=== PATIENT | male | born 1950 | race Caucasian/White ===

== ENCOUNTER 2022-10-05 14:10 | Outpatient (CLI) | payer MEDICARE, SELFPAY ==
[2022-10-05 14:35] LABS: Basophils Absolute Auto 0.1 K/mm3 (0.0-0.1); Basophils Percent Auto 0.8 % (0.2-1.2); Eosinophils Absolute Auto 0.2 K/mm3 (0-0.3); Eosinophils Percent Auto 2.7 % (0-4.4); Hematocrit 41.8 % (42.0-52.0); Immature Granulocyte Absolute 0.02 K/mm3 (0.00-0.031); Immature Granulocyte Percent A 0.3 % (0-0.5); Lymphocytes Absolute Auto 2.38 K/mm3 (0.9-3.2); Lymphocytes Percent Auto 30.7 % (18.3-44.2); Mean Corpuscular HGB Conc 33.5 g/dl (32-36); Mean Corpuscular Hemoglobin 28.9 pg (26-34); Mean Corpuscular Volume 86.4 fl (80-100); Mean Platelet Volume 9.4 fl (7.4-10.4); Monocytes Absolute Auto 0.9 K/mm3 (0.1-0.6); Neutrophils Absolute Auto 4.2 K/mm3 (1.3-6.7); Neutrophils Percent Auto 54.5 % (45.5-73.1); Platelet Count Result 208 k/mm3 (150-375); Red Blood Count 4.84 M/mm3 (4.6-6.20); Red Cell Distribution Width 11.9 % (11.5-14.5); White Blood Count 7.8 K/mm3 (4.5-10.0)
[2022-10-05 16:19] LABS: Alanine Aminotransferase 25 U/L (6-50); Alkaline Phosphatase 83 U/L (38-126); Anion Gap 6 mmol/L (8-16); Aspartate Amino Transferase 32 U/L (17-59); Bilirubin,Total 0.6 mg/dL (0.2-1.3); Blood Urea Nitrogen 24 mg/dL (9-20); Carbon Dioxide 33 mmol/L (22-30); Chloride 97 mmol/L (98-107); Estimated Glomerular Filt Rate > 60; Glucose 106 mg/dL (65-110); Potassium 4.3 mmol/L (3.4-5.0); Sodium 136 mmol/L (137-145)
[2022-10-05 18:43] LABS: Immunoglobulin A 98 mg/dL (70-400); Immunoglobulin G 966 mg/dL (700-1600); Immunoglobulin M 110 mg/dL (40-230)
[2022-10-08 06:59] LABS: Albumin 4.6 g/dL (3.8-4.8); Alpha 1 Globulin 0.4 g/dL (0.2-0.3); Beta 1 Globulin 0.4 g/dL (0.4-0.6); Gamma Globulin 0.9 g/dL (0.8-1.7); Protein, Total 7.6 g/dL (6.1-8.1)
[2022-10-09 05:43] LABS: Kappa\\Lambda Light Chains 1.59 (0.26-1.65); Lambda Light Chain 17.8 mg/L (5.7-26.3)
== END 2022-10-05 14:11 | disposition home or self-care (01) ==
LOC: ANHLAB 14:14
PROVIDERS: PCP Internal Medicine; Visit Provider Internal Medicine Hematology & Oncology
DX: D72.9 Disorder of white blood cells, unspecified (principal)
CPT/HCPCS: 36415; 80053; 82784; 83883; 84155; 84165; 85025

== ENCOUNTER 2023-01-15 11:18 | Emergency (ER) | payer MEDICARE, SELFPAY ==
--- NOTE | ~2023-01-15 | XR_ITS ---
XR chest 2V DATE: 01/15/2023 11:43 INDICATION: Cough, shortness of breath. Covid-positive 2 days ago. TECHNIQUE: 2 views COMPARISON: 12/31/2006 PA and lateral chest FINDINGS: Normal heart size. No hilar or mediastinal enlargement. No pulmonary infiltrate or consolid ation, pleural effusion or pulmonary vascular congestion or pneumothorax. 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 Degenerative spurring of the thoracic spine. IMPRESSION: No active cardiopulmonary disease Reviewed, dictated and finalized at location B.
--- NOTE | 2023-01-15 11:24 | ED.URI ---
HPI - URI/Sore Throat General Chief Complaint: Upper Respiratory Infection Stated Complaint: flu like symptoms Time Seen by Provider: 01/15/23 11:24 Source: patient Mode of arrival: ambulatory Limitations: no limitations History of Present Illness HPI Narrative: Mr. Ureña is a 72-year-old male patient presenting to the clinic today with complaints of COVID symptoms. He reports that his is tested positive for COVID. States his symptoms began either Wednesday night or Wednesday morning. He denies any known fever but has had chills, body aches, nonproductive cough, sore throat, headache, and mild shortness of breath. Denies chest pain. MD elicited complaint: cough, sore throat, nasal congestion and other (Headache, body aches, chills) Related Data Home Medications Medication Instructions Recorded Confirmed aspirin 81 mg capsule 81 mg PO DAILY 01/15/23 01/15/23 atenolol 25 mg tablet 50 mg PO DAILY 01/15/23 01/15/23 atorvastatin 40 mg tablet 40 mg PO DAILY 01/15/23 01/15/23 diclofenac sodium 75 mg 75 mg PO DAILY 01/15/23 01/15/23 tablet,delayed release ezetimibe 10 mg tablet 10 mg PO DAILY 01/15/23 01/15/23 gabapentin 600 mg tablet 600 mg PO TID 01/15/23 01/15/23 hydrochlorothiazide 25 mg tablet 25 mg PO DAILY 01/15/23 01/15/23 metformin 500 mg tablet 500 mg PO DAILY 01/15/23 01/15/23 methylphenidate HCl 10 mg tablet 20 mg PO DAILY 01/15/23 01/15/23 olmesartan 20 mg tablet 40 mg PO DAILY 01/15/23 01/15/23 omeprazole 20 mg capsule,delayed 20 mg PO DAILY 01/15/23 01/15/23 release Allergies Allergy/AdvReac Type Severity Reaction Status Date / Time meperidine Allergy Mild Nausea and Verified 01/15/23 11:38 Vomiting hydrocodone Allergy Unknown Verified 01/15/23 11:38 Review of Systems Review of Systems: Pertinent positives per HPI. Patient denies any fever, chills, rash, visual changes, dizziness, chest pain, palpitations, nausea, vomiting, diarrhea, constipation, abdominal pain, or any urinary issues. PMFSH Comments At the time of my signature, I reviewed and agree with the nursing past medical, surgical, social, and family history. There is no relevant family history pertinent to the patient complaint. Exam Narrative: General: Well-developed, well nourished, in no apparent distress Head: Normocephalic, atraumatic Eyes: Pupils equally round and reactive to light bilaterally, EOM intact, sclera and conjunctive clear, no discharge, lids normal Ears: Right tMs intact and clear, unable to visualize left TM due to foreign body in the ear canal (hearing aid silicon tip), right ear canal clear, no drainage, grossly hearing normal. Left ear is nonpainful Nose: Nares patent, clear nasal discharge, no inflammation, no sinus tenderness. Mouth: Oral pharynx without lesions or masses, good dentition, MMM. Neck: Supple, trachea midline, no enlargement of anterior or posterior cervical nodes, no thyroid masses or goiter palpable. Cardio: Regular rate and rhythm, s1 and s2 normal, no murmur appreciated. Resp: Left mid posterior lung crackles otherwise clear, no rhonchi, rales, wheezing or rubs Course Course Emergency Course: Portions of this record may have been created with voice recognition software. Level of Care: Express Care Visit Vital Signs Vital signs: Vital signs reviewed MDM - URI/Sore Throat MDM Narrative Medical decision making narrative: At the time of visit patient is resting comfortably on exam table. COVID testing was positive in the clinic today. Patient has crackles over the left mid lung adame posteriorly. Chest x-ray was negative for any sign of pneumonia. Will send in prescription for Molnupiravir. Supportive measures were discussed with the patient he voiced understanding discharge instructions. Red flag symptoms were reviewed with the patient he voiced understanding Differential Diagnosis Differential diagnosis: Likely upper respiratory infection, sinusitis, viral infection, bronchit
[2023-01-15 11:35] VITALS: BP 112/65; PULSE 93; RESP 18; TEMP 37.2; O2SAT 98
== END 2023-01-15 11:57 | disposition home or self-care (01) ==
PROVIDERS: Emergency Provider Nurse Practitioner Family; PCP Internal Medicine
DX: U07.1 COVID-19 (principal); T16.2XXA Foreign body in left ear, initial encounter; X58.XXXA Exposure to other specified factors, initial encounter; E78.00 Pure hypercholesterolemia, unspecified; I10 Essential (primary) hypertension; K21.9 Gastro-esophageal reflux disease without esophagitis; E11.9 Type 2 diabetes mellitus without complications
CPT/HCPCS: 71046; 87426; 99213; C9803; G0463

== ENCOUNTER 2023-02-01 12:12 | Emergency (ER) | payer MEDICARE, SELFPAY ==
[2023-02-01 12:25] VITALS: BP 109/75; PULSE 70; RESP 16; TEMP 36.6; O2SAT 100
--- NOTE | 2023-02-01 13:03 | ED.EAR ---
HPI - Ear Problem General Chief complaint: Ear Stated complaint: foreign object lt ear Source: patient Mode of arrival: ambulatory Limitations: no limitations History of Present Illness HPI Narrative: 72-year-old male presents to [facility] with complaints of foreign body lodged to his left ear for approximately 1 month. Patient reports he was evaluated here on January 15, diagnosed with COVID and was told he had a foreign body to his left ear but foreign body was not removed at that time. Patient reports that he then saw his primary care provider who was unable to remove foreign body and he has since been referred to ENT but he has not seen them yet. Patient reports that he does wear hearing aids and believes that it is the tip of a hearing aid lodged in his ear. Patient denies ear pain or ear drainage. MD Complaint: foreign body Location: left ear Relieving factors: nothing Exacerbating factors: nothing Discharge from ear: Reports no Treatment prior to arrival: none Related Data Home Medications Medication Instructions Recorded Confirmed aspirin 81 mg capsule 81 mg PO DAILY 01/15/23 01/15/23 atenolol 25 mg tablet 50 mg PO DAILY 01/15/23 01/15/23 atorvastatin 40 mg tablet 40 mg PO DAILY 01/15/23 01/15/23 diclofenac sodium 75 mg 75 mg PO DAILY 01/15/23 01/15/23 tablet,delayed release ezetimibe 10 mg tablet 10 mg PO DAILY 01/15/23 01/15/23 gabapentin 600 mg tablet 600 mg PO TID 01/15/23 01/15/23 hydrochlorothiazide 25 mg tablet 25 mg PO DAILY 01/15/23 01/15/23 metformin 500 mg tablet 500 mg PO DAILY 01/15/23 01/15/23 methylphenidate HCl 10 mg tablet 20 mg PO DAILY 01/15/23 01/15/23 olmesartan 20 mg tablet 40 mg PO DAILY 01/15/23 01/15/23 omeprazole 20 mg capsule,delayed 20 mg PO DAILY 01/15/23 01/15/23 release Allergies Allergy/AdvReac Type Severity Reaction Status Date / Time meperidine Allergy Mild Nausea and Verified 01/15/23 11:38 Vomiting hydrocodone Allergy Unknown Verified 01/15/23 11:38 Review of Systems Constitutional: Constitutional: Denies chills, Denies fatigue, Denies fever(s) and Denies weakness ENT: Denies dizziness, Denies epistaxis, Denies nasal congestion and Denies sore throat Comments: Foreign body to left ear Cardiovascular: Cardiovascular: Denies chest pain, Denies rapid heart rate, Denies radiating jaw, neck or arm pain and Denies slow heart rate Respiratory: Respiratory: Denies cough, Denies dyspnea and Denies wheezing Gastrointestinal: Gastrointestinal: Denies diarrhea, Denies nausea and Denies vomiting Integumentary/Breasts: Skin/Breast: Denies rash PMFSH Comments At time of signature, I agree with nursing past medical, surgical, social and family history. There is no relevant family history pertinent to the presenting complaint. Exam Const: General: healthy appearing and no acute distress Nutritional Appearance: well nourished Orientation/consciousness: patient oriented x3 Limitations: no limitations HENMT: Head: normal to inspection Ears: Abnormal EAC present foreign body (hearing aid tip ) on the left and TM abnormal other (Unable to visualize left TM due to foreign body, right TM is within normal limits) Face and sinus: normal facial exam Mouth: Yes Normal oral and palatal mucosa present, Yes lip normal and Yes moist mucous membranes Throat: posterior oropharynx normal and uvula midline Eyes: Conjunctivae: conjunctivae normal Neck: Neck: normal visual inspection Resp: Effort & Inspection: normal respiratory effort Auscultation: clear to auscultation bilaterally, no crackles, no rales, no rhonchi, no wheezes and breath sounds present Cardio: Rate: regular rate Rhythm: regular rhythm Heart sounds: no murmurs Skin: General skin exam: normal color Wounds: no wounds Neuro: General: patient oriented x3 Speech: normal speech Gait exam (Neuro): Normal gait present Psych: Affect: normal affect Attitude: cooperative Course Course Level of Care: Express
== END 2023-02-01 13:27 | disposition home or self-care (01) ==
PROVIDERS: Emergency Provider Nurse Practitioner Family; PCP Internal Medicine
DX: T16.2XXA Foreign body in left ear, initial encounter (principal); X58.XXXA Exposure to other specified factors, initial encounter; E78.00 Pure hypercholesterolemia, unspecified; I10 Essential (primary) hypertension; K21.9 Gastro-esophageal reflux disease without esophagitis; E11.9 Type 2 diabetes mellitus without complications; Z86.16 Personal history of COVID-19
CPT/HCPCS: 69200; 99213; G0463

== ENCOUNTER 2023-04-21 11:22 | Outpatient (CLI) | payer MEDICARE, SELFPAY ==
[2023-04-21 11:41] LABS: Basophils Absolute Auto 0.1 K/mm3 (0.0-0.1); Basophils Percent Auto 0.9 % (0.2-1.2); Eosinophils Absolute Auto 0.3 K/mm3 (0-0.3); Hematocrit 37.2 % (42.0-52.0); Hemoglobin 12.2 g/dL (14.0-18.0); Immature Granulocyte Absolute 0.02 K/mm3 (0.00-0.031); Immature Granulocyte Percent A 0.3 % (0-0.5); Lymphocytes Absolute Auto 2.19 K/mm3 (0.9-3.2); Lymphocytes Percent Auto 31.2 % (18.3-44.2); Mean Corpuscular HGB Conc 32.8 g/dl (32-36); Mean Corpuscular Hemoglobin 28.5 pg (26-34); Mean Corpuscular Volume 86.9 fl (80-100); Mean Platelet Volume 9.5 fl (7.4-10.4); Monocytes Absolute Auto 0.8 K/mm3 (0.1-0.6); Monocytes Percent Auto 11.2 % (2.6-8.5); Neutrophils Absolute Auto 3.7 K/mm3 (1.3-6.7); Neutrophils Percent Auto 52.4 % (45.5-73.1); Platelet Count Result 202 k/mm3 (150-375); Red Blood Count 4.28 M/mm3 (4.6-6.20); Red Cell Distribution Width 12.6 % (11.5-14.5)
[2023-04-21 15:42] LABS: Alanine Aminotransferase 26 U/L (6-50); Albumin Level 4.5 g/dL (3.5-5.1); Alkaline Phosphatase 74 U/L (38-126); Anion Gap 7 mmol/L (8-16); Aspartate Amino Transferase 30 U/L (17-59); Bilirubin,Total 0.6 mg/dL (0.2-1.3); Blood Urea Nitrogen 32 mg/dL (9-20); Calcium 9.5 mg/dL (8.4-10.2); Carbon Dioxide 28 mmol/L (22-30); Chloride 102 mmol/L (98-107); Estimated Glomerular Filt Rate 50; Glucose 111 mg/dL (65-110); Potassium 4.2 mmol/L (3.4-5.0); Sodium 137 mmol/L (137-145)
[2023-04-21 15:47] LABS: Immunoglobulin A 91 mg/dL (70-400); Immunoglobulin G 841 mg/dL (700-1600); Immunoglobulin M 81 mg/dL (40-230)
[2023-04-23 11:55] LABS: Kappa\\Lambda Light Chains 1.81 (0.26-1.65); Lambda Light Chain 23.2 mg/L (5.7-26.3)
[2023-04-24 16:28] LABS: Albumin 4.2 g/dL (3.8-4.8); Alpha 1 Globulin 0.3 g/dL (0.2-0.3); Alpha 2 Globulin 0.9 g/dL (0.5-0.9); Beta 1 Globulin 0.4 g/dL (0.4-0.6); Gamma Globulin 0.8 g/dL (0.8-1.7); Protein, Total 6.8 g/dL (6.1-8.1)
== END 2023-04-21 11:23 | disposition home or self-care (01) ==
LOC: ANHLAB 11:24
PROVIDERS: PCP Internal Medicine; Visit Provider Internal Medicine Hematology & Oncology
DX: D72.9 Disorder of white blood cells, unspecified (principal)
CPT/HCPCS: 36415; 80053; 82784; 83883; 84155; 84165; 85025

== ENCOUNTER 2023-04-27 12:21 | Emergency (ER) | payer MEDICARE, SELFPAY ==
[2023-04-27 12:34] VITALS: BP 141/70; PULSE 62; RESP 12; TEMP 36.2; O2SAT 100
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
== END 2023-04-27 12:55 | disposition home or self-care (01) ==
PROVIDERS: Emergency Provider Nurse Practitioner Family; PCP Internal Medicine
DX: T24.101A Burn of first degree of unspecified site of right lower limb, except ankle and foot, initial encounter (principal); X17.XXXA Contact with hot engines, machinery and tools, initial encounter; L03.115 Cellulitis of right lower limb
CPT/HCPCS: 99213; G0463

== ENCOUNTER 2023-09-27 11:07 | Emergency (ER) | payer MEDICARE, SELFPAY ==
[2023-09-27 11:18] VITALS: BP 170/89; PULSE 55; RESP 16; TEMP 36.6; O2SAT 100
[2023-09-27 11:28] VITALS: BP 170/89; PULSE 55; RESP 16; TEMP 36.6; O2SAT 100
--- NOTE | 2023-09-27 11:47 | WPDEDEXPGENP ---
HPI - General Ped General Chief complaint: Unspecified Stated complaint: elevated blood pressure Source: patient Mode of arrival: ambulatory Limitations: no limitations Nursing Documentation: reviewed/agree History of Present Illness HPI narrative: 73-year-old male presents to Express Care when his blood pressure evaluated. Patient reports that he use a blood pressure cuff and when his blood pressure evaluated today to make sure his cuff is working accurately. Patient reports that he was evaluated at [facility] on WednesdaySeptember 24 for elevated blood pressure; patient reports that he was discharged with no medication changes in his blood pressure was 195/105 at that time. Patient reports his blood pressure is 170/90 this morning. Patient denies chest pain, shortness of breath, headache, dizziness or blurred vision. Patient reports that he does have a ct scan technician but has not made appointment with his ct scan technician or his primary care provider to discuss blood pressure. Relieving factors: none Exacerbating factors: none Associated symptoms: denies other symptoms Treatments prior to arrival: none Related Data Home Medications Medication Instructions Recorded Confirmed aspirin 81 mg capsule 81 mg PO DAILY 01/15/23 09/27/23 atenolol 25 mg tablet 50 mg PO DAILY 01/15/23 09/27/23 atorvastatin 40 mg tablet 40 mg PO DAILY 01/15/23 09/27/23 diclofenac sodium 75 mg 75 mg PO DAILY 01/15/23 09/27/23 tablet,delayed release ezetimibe 10 mg tablet (Zetia) 10 mg PO DAILY 01/15/23 09/27/23 gabapentin 600 mg tablet 600 mg PO TID 01/15/23 09/27/23 metformin 500 mg tablet 500 mg PO DAILY 01/15/23 09/27/23 methylphenidate HCl 10 mg tablet 20 mg PO DAILY 01/15/23 09/27/23 olmesartan 20 mg tablet 40 mg PO DAILY 01/15/23 09/27/23 omeprazole 20 mg capsule,delayed 20 mg PO DAILY 01/15/23 09/27/23 release Allergies Allergy/AdvReac Type Severity Reaction Status Date / Time hydrocodone AdvReac Intermediate Nausea and Verified 09/27/23 11:27 Vomiting meperidine AdvReac Intermediate Nausea and Verified 09/27/23 11:27 Vomiting Pediatric Review of Systems Constitutional: Denies fever, chills or change in activity level ENT: Denies ear pain, sore throat, dental pain or rhinorrhea Cardiovascular: Denies chest pain, palpitations, syncope, edema or dyspnea on exertion Respiratory: Denies cough, dyspnea or wheezing Gastrointestinal: Denies abdominal pain, nausea, vomiting or diarrhea Genitourinary: Denies dysuria Musculoskeletal: Denies back pain or joint swelling Integumentary: Denies rash Neurological: Denies headache, weakness, vertigo or numbness Endocrine: Denies fatigue PMFSH Comments At time of signature, I agree with nursing past medical, surgical, social and family history. There is no relevant family history pertinent to the presenting complaint. Course Course Level of Care: [facility] Visit Vital Signs Vital signs: Vital Signs Temperature 36.6 C 09/27/23 11:18 Pulse Rate 55 L 09/27/23 11:18 Respiratory Rate 16 09/27/23 11:18 Blood Pressure 170/89 H 09/27/23 11:18 Pulse Oximetry 100 09/27/23 11:18 Oxygen Delivery Room Air 09/27/23 11:18 Temperature 36.6 C 09/27/23 11:28 Pulse Rate 55 L 09/27/23 11:28 Respiratory Rate 16 09/27/23 11:28 Blood Pressure 170/89 H 09/27/23 11:28 Pulse Oximetry 100 09/27/23 11:28 Oxygen Delivery Room Air 09/27/23 11:28 Medical Decision Making MDM Narrative Medical decision making narrative: Patient's blood pressure machine with similar to blood pressure obtained today at [facility]. Patient refuses EKG at this time. Patient denies current symptoms. Patient understands importance of following up with ct scan technician or primary care provider soon as possible to discuss blood pressure. Patient agrees to proceed to the emergency room if symptoms would develop. Differential Diagnosis Differential Diagnosis: Hypertensive crisis, hypertensio
== END 2023-09-27 11:52 | disposition home or self-care (01) ==
PROVIDERS: Emergency Provider Nurse Practitioner Family; PCP Internal Medicine
DX: I10 Essential (primary) hypertension (principal); E78.00 Pure hypercholesterolemia, unspecified; K21.9 Gastro-esophageal reflux disease without esophagitis; M19.90 Unspecified osteoarthritis, unspecified site; E11.40 Type 2 diabetes mellitus with diabetic neuropathy, unspecified
CPT/HCPCS: 99211; G0463

== ENCOUNTER 2024-01-18 10:24 | Outpatient (CLI) | payer MEDICARE, SELFPAY ==
[2024-01-18 10:41] LABS: Basophils Absolute Auto 0.1 K/mm3 (0.0-0.1); Basophils Percent Auto 0.9 % (0.2-1.2); Eosinophils Absolute Auto 0.3 K/mm3 (0-0.3); Hematocrit 40.1 % (42.0-52.0); Hemoglobin 13.3 g/dL (14.0-18.0); Immature Granulocyte Absolute 0.02 K/mm3 (0.00-0.031); Immature Granulocyte Percent A 0.3 % (0-0.5); Lymphocytes Absolute Auto 2.59 K/mm3 (0.9-3.2); Lymphocytes Percent Auto 37.9 % (18.3-44.2); Mean Corpuscular HGB Conc 33.2 g/dl (32-36); Mean Corpuscular Hemoglobin 29.3 pg (26-34); Mean Corpuscular Volume 88.3 fl (80-100); Mean Platelet Volume 9.3 fl (7.4-10.4); Monocytes Absolute Auto 0.9 K/mm3 (0.1-0.6); Monocytes Percent Auto 12.7 % (2.6-8.5); Neutrophils Percent Auto 44.2 % (45.5-73.1); Platelet Count Result 190 k/mm3 (150-375); Red Blood Count 4.54 M/mm3 (4.6-6.20); Red Cell Distribution Width 12.3 % (11.5-14.5); White Blood Count 6.8 K/mm3 (4.5-10.0)
[2024-01-18 12:36] LABS: Alanine Aminotransferase 21 U/L (6-50); Albumin Level 4.3 g/dL (3.5-5.1); Alkaline Phosphatase 72 U/L (38-126); Anion Gap 6 mmol/L (4-12); Aspartate Amino Transferase 26 U/L (17-59); Bilirubin,Total 0.8 mg/dL (0.2-1.3); Blood Urea Nitrogen 28 mg/dL (9-20); Calcium 9.6 mg/dL (8.4-10.2); Carbon Dioxide 30 mmol/L (22-30); Chloride 99 mmol/L (98-107); Estimated Glomerular Filt Rate 49; Glucose 216 mg/dL (65-110); Potassium 4.1 mmol/L (3.4-5.0); Sodium 135 mmol/L (137-145)
[2024-01-18 12:44] LABS: Immunoglobulin A 97 mg/dL (70-400); Immunoglobulin G 897 mg/dL (700-1600); Immunoglobulin M 87 mg/dL (40-230)
[2024-01-20 11:23] LABS: Kappa\\Lambda Light Chains 1.57 (0.26-1.65); Lambda Light Chain 20.6 mg/L (5.7-26.3)
[2024-01-21 15:32] LABS: Albumin 4.2 g/dL (3.8-4.8); Alpha 1 Globulin 0.3 g/dL (0.2-0.3); Alpha 2 Globulin 0.8 g/dL (0.5-0.9); Beta 1 Globulin 0.4 g/dL (0.4-0.6); Gamma Globulin 0.8 g/dL (0.8-1.7); Protein, Total 6.8 g/dL (6.1-8.1)
== END 2024-01-18 10:25 | disposition home or self-care (01) ==
LOC: ANHLAB 10:27
PROVIDERS: PCP Internal Medicine; Visit Provider Internal Medicine Hematology & Oncology
DX: D72.9 Disorder of white blood cells, unspecified (principal)
CPT/HCPCS: 36415; 80053; 82784; 83883; 84155; 84165; 85025

== ENCOUNTER 2024-02-09 13:48 | Outpatient (CLI) | payer MEDICARE, SELFPAY ==
--- NOTE | ~2024-02-09 | MR_ITS ---
EXAMINATION: MR cervical spine wo con DATE: 02/09/2024 14:35 INDICATION: Neck pain. TECHNIQUE: Magnetic resonance imaging (MRI) of the cervical spine was performed without intravenous c ontrast. COMPARISON: None FINDINGS: There is 4 degrees levocurvature of cervicothoracic spine. Vertebral body heights are xander l. There is mildly decreased disc height at C3-C4, moderately decreased disc height at C5-C6, and sev erely decreased disc height at C6-C7. The spinal cord signal intensity is normal. The following disc levels are specifically discussed: C2-C3: There is a central protrusion. There is mild bilateral uncovertebral joint osteoarthritis. The re is mild right and moderate left facet joint osteoarthritis. There is mild right neural foraminal s tenosis. There is no central canal stenosis. C3-C4: There is a central protrusion. There is mild bilateral uncovertebral joint osteoarthritis. The re is severe bilateral facet joint osteoarthritis. There is mild bilateral neural foraminal stenosis. There is no central canal stenosis. C4-C5: There is a right central protrusion. There is mild bilateral uncovertebral joint osteoarthriti s. There is severe right and mild left facet joint osteoarthritis. There is mild right neural foramin al stenosis. There is no central canal stenosis. C5-C6: The disc is bulging. There is severe bilateral uncovertebral joint osteoarthritis. There is mi ld bilateral facet joint osteoarthritis. There is mild bilateral neural foraminal stenosis. There is mild central canal stenosis. C6-C7: The disc is bulging. There is mild right and severe left uncovertebral joint osteoarthritis. T here is mild bilateral facet joint osteoarthritis. There is mild bilateral neural foraminal stenosis. There is mild central canal stenosis. C7-T1: The disc does not extend beyond the endplate margin. There is no uncovertebral joint osteoarth ritis. There is severe right and moderate left facet joint osteoarthritis. There is mild bilateral ne ural foraminal stenosis. There is no central canal stenosis. IMPRESSION: 1. Severe cervical spondylosis. Reviewed, dictated and finalized at location E.
== END 2024-02-09 13:49 | disposition home or self-care (01) ==
PROVIDERS: PCP Internal Medicine; Visit Provider Internal Medicine
DX: M47.892 Other spondylosis, cervical region (principal)
CPT/HCPCS: 72141

== ENCOUNTER 2024-02-16 08:43 | Outpatient (CLI) | payer MEDICARE, SELFPAY ==
--- NOTE | ~2024-02-16 | US_ITS ---
EXAMINATION: US arterial ankle brachial ind DATE: 02/16/2024 10:03 INDICATION: Peripheral vascular disease, unspecified. TECHNIQUE: Segmental pressures and plethysmographic and Doppler waveforms of the brachial and lower e xtremity arteries were obtained. COMPARISON: None. FINDINGS: Right and left brachial artery pressures of 126 mm Hg and 127 mm Hg, respectively, are concordant (no rmal difference <= 30 mmHg). The right ankle-brachial index (NIRMALA) is 1.18 (normal >= 0.9-1.0). The right great toe-brachial index (TBI) is 0.75 (normal >= 0.65). Arterial Doppler waveforms are at least triphasic at the ankle. The left NIRMALA is 1.28. The left TBI is 0.72. Arterial Doppler waveforms are triphasic in posterior tib ial artery and biphasic in dorsalis pedis. IMPRESSION: 1. No significant arterial occlusive disease. Reviewed, dictated and finalized at location A.
== END 2024-02-16 08:44 | disposition home or self-care (01) ==
PROVIDERS: PCP Internal Medicine; Visit Provider Internal Medicine
DX: I73.9 Peripheral vascular disease, unspecified (principal)
CPT/HCPCS: 93922

== ENCOUNTER 2024-03-06 11:52 | Outpatient (CLI) | payer MEDICARE, SELFPAY ==
--- NOTE | ~2024-03-06 | XR_ITS ---
XR knee LT min 4V DATE: 03/06/2024 12:06 INDICATION: Left knee pain TECHNIQUE: 5 views COMPARISON: None FINDINGS: There is severe narrowing and virtual obliteration of medial compartment joint space, with periarticular spurring. There is chondrocalcinosis. There is periarticular spurring of the patellofemoral joint. There is mild suprapatellar knee joint effusion. Osteopenia. No fracture or dislocation, periosteal reaction or bone destruction. 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
== END 2024-03-06 11:53 ==
PROVIDERS: PCP Pain Medicine Pain Medicine; Visit Provider Pain Medicine Pain Medicine
DX: M25.562 Pain in left knee (principal); M25.462 Effusion, left knee; M85.88 Other specified disorders of bone density and structure, other site; M17.12 Unilateral primary osteoarthritis, left knee; M22.8X2 Other disorders of patella, left knee
CPT/HCPCS: 73564

== ENCOUNTER 2025-04-06 13:19 | Outpatient (CLI) | payer MEDICARE, SELFPAY ==
[2025-04-06 13:43] LABS: Basophils Absolute Auto 0.1 K/mm3 (0.0-0.1); Basophils Percent Auto 0.9 % (0.2-1.2); Eosinophils Absolute Auto 0.2 K/mm3 (0-0.3); Hematocrit 41.9 % (42.0-52.0); Hemoglobin 13.4 g/dL (14.0-18.0); Immature Granulocyte Absolute 0.01 K/mm3 (0.00-0.031); Immature Granulocyte Percent A 0.1 % (0-0.5); Lymphocytes Absolute Auto 2.66 K/mm3 (0.9-3.2); Mean Corpuscular Hemoglobin 27.7 pg (26-34); Mean Corpuscular Volume 86.6 fl (80-100); Mean Platelet Volume 9.3 fl (7.4-10.4); Monocytes Absolute Auto 0.9 K/mm3 (0.1-0.6); Monocytes Percent Auto 11.6 % (2.6-8.5); Neutrophils Percent Auto 51.4 % (45.5-73.1); Platelet Count Result 221 k/mm3 (150-375); Red Blood Count 4.84 M/mm3 (4.6-6.20); Red Cell Distribution Width 12.6 % (11.5-14.5); White Blood Count 7.8 K/mm3 (4.5-10.0)
[2025-04-06 16:32] LABS: Alanine Aminotransferase 19 U/L (6-50); Albumin Level 4.4 g/dL (3.5-5.1); Alkaline Phosphatase 89 U/L (38-126); Anion Gap 9 mmol/L (4-12); Aspartate Amino Transferase 55 U/L (17-59); Bilirubin,Total 0.7 mg/dL (0.2-1.3); Blood Urea Nitrogen 13 mg/dL (9-20); Carbon Dioxide 29 mmol/L (22-30); Chloride 99 mmol/L (98-107); Estimated Glomerular Filt Rate > 60; Glucose 120 mg/dL (65-110); Potassium 3.9 mmol/L (3.4-5.0); Sodium 137 mmol/L (137-145); Total Protein 7.3 g/dL (6.3-8.2)
[2025-04-06 16:34] LABS: Immunoglobulin A 84 mg/dL (70-400); Immunoglobulin G 887 mg/dL (700-1600); Immunoglobulin M 82 mg/dL (40-230)
[2025-04-09 11:39] LABS: Kappa\\Lambda Light Chains 1.57 (0.26-1.65); Lambda Light Chain 17.7 mg/L (5.7-26.3)
[2025-04-10 21:19] LABS: Protein, Total 6.8 g/dL (6.1-8.1)
[2025-04-11 12:43] LABS: Albumin 4.2 g/dL (3.8-4.8); Alpha 1 Globulin 0.4 g/dL (0.2-0.3); Alpha 2 Globulin 0.8 g/dL (0.5-0.9); Beta 1 Globulin 0.4 g/dL (0.4-0.6); Gamma Globulin 0.8 g/dL (0.8-1.7)
== END 2025-04-06 13:20 | disposition home or self-care (01) ==
PROVIDERS: PCP Internal Medicine; Visit Provider Internal Medicine Hematology & Oncology
DX: D72.9 Disorder of white blood cells, unspecified (principal)
CPT/HCPCS: 36415; 80053; 82784; 83883; 84155; 84165; 85025

== ENCOUNTER 2025-04-16 10:38 | Emergency (ER) | payer MEDICARE, SELFPAY ==
[2025-04-16 10:46] VITALS: BP 124/75; PULSE 66; RESP 18; TEMP 36.7; O2SAT 99
--- NOTE | 2025-04-16 10:55 | ED_ITS ---
HPI - Ear Problem General Chief complaint: Ear Stated complaint: object stuck in ear Time Seen by Provider: 04/16/25 10:55 Source: patient Mode of arrival: ambulatory Limitations: no limitations History of Present Illness HPI Narrative: 74 y/o male presented for c/o a piece of hearing aide stuck in the right ear. Denies ear pain, decreased hearing, tinnitus or dizziness. Says he lost the piece 3 days ago. Patient states he was seen at the facility where he received the hearing aides, and they were unable to remove the piece today. MD Complaint: ear pain Related Data Home Medications ?Medication ?Instructions ?Recorded ?Confirmed ?Last Taken ?Type aspirin 81 mg capsule 81 mg PO DAILY 01/15/23 10/09/24 Unknown History atenolol 25 mg tablet 50 mg PO DAILY 01/15/23 10/09/24 Unknown History atorvastatin 40 mg tablet 40 mg PO DAILY 01/15/23 10/09/24 Unknown History ezetimibe 10 mg tablet (Zetia) 10 mg PO DAILY 01/15/23 10/09/24 Unknown History gabapentin 600 mg tablet 600 mg PO TID 01/15/23 10/09/24 Unknown History metformin 500 mg tablet 500 mg PO DAILY 01/15/23 10/09/24 Unknown History methylphenidate HCl 10 mg tablet 20 mg PO DAILY 01/15/23 10/09/24 Unknown History olmesartan 20 mg tablet 40 mg PO DAILY 01/15/23 10/09/24 Unknown History omeprazole 20 mg capsule,delayed 20 mg PO DAILY 01/15/23 10/09/24 Unknown History release Allergies Allergy/AdvReac Type Severity Reaction Status Date / Time hydrocodone AdvReac Intermediate Nausea and Verified 04/16/25 10:58 Vomiting meperidine AdvReac Intermediate Nausea and Verified 04/16/25 10:58 Vomiting Review of Systems Review of Systems: CONSTITUTIONAL: Denies malaise, chills, or fever. EYES: Denies visual changes, redness, or discharge. ENT: Denies rhinorrhea, congestion, sinus pain, and sore throat. Reports ear FB CARDIOVASCULAR: Denies chest pain, palpitations, or edema. RESPIRATORY: Denies cough or dyspnea. GASTROINTESTINAL: Denies abdominal pain, nausea, vomiting, diarrhea SKIN: Denies rash or itching. MUSCULOSKELETAL: Denies myalgia. NEUROLOGIC: Denies headache. All systems reviewed & are unremarkable except as noted in HPI and below PMFSH Past Medical History Medical History Diabetes PAD (peripheral artery disease) CAD (coronary artery disease) Hyperlipemia Hypertension Family History Family History Father Cerebrovascular accident Social History Social History Smoking status: Never smoker Alcohol intake: never Substance use: never Current Housing: Decline to Answer Concerned About Future Housing: Decline to Answer Difficulty Paying Gas/Electric Bills: Decline to Answer Difficulty Paying for Meds: Decline to Answer Currently Unemployed: Decline to Answer Education: Decline to Answer Difficulty w/ Childcare or Family Care: Decline to Answer Comments At time of signature, agree with nursing past medical, surgical, social and family history. There is no relevant family history pertinent to the presenting complaint Exam Narrative: GENERAL: Well-appearing EYES: PERRLA, conjunctivae clear ENT: Nares clear. Mucous membranes moist. FB to right ear. Left ear with hearing aide in place. no drainage, no tragal tenderness. NECK: Supple. No lymphadenopathy CHEST: Clear to auscultation, breath sounds equal. SKIN: Warm, dry, no rash. NEURO: Alert and oriented x3. PSYCH: Normal mood and affect Course Course Emergency Course: Patient is aware of diagnosis, understands and agrees to treatment plan. Anticipatory guidance given. Patient agrees to follow-up as directed and is aware of reasons to seek care at the emergency department. Portions of this record may have been created with voice recognition software Level of Care: Express Care Visit Vital Signs Vital signs: Vital Signs Temperature 98.0 F 04/16/25 10:46 Pulse Rate 66 04/16/25 10:46 Respiratory Rate 18 04/16/25 10:46 Blood Pressure 124/75 04/16/25 10:46 Pulse Oximetry 99 04/16/25 10:46 Oxygen Delivery Room Air 04/16/25 10:46 Temperature 98.0 F 04/16/25 10:46 Pulse Rate 66 04/16/25 10:46 Respiratory Rate 18 04/16/25 10:46 Blood Pressure 124/75 04/16/25 10:46 Pulse Oximetry 99 04/16/25 10:46 Oxygen Delivery Room Air 04/16/25 10:46 Reviewed Procedures FB Removal Ear Foreign Body #1: Foreign Body Removal Date: 04/16/25 Location: ear canal (R) Foreign Body Suspected: other (end piece of hearing aide.) TM intact pre-procedure: unable to visualize Foreign Body Removed: yes (complete) Foreign Body Removal Technique: forceps Tympanic Membrane Intact Post Procedure: Yes Patient Tolerated Procedure: well and no complications Medical Decision Making MDM Narrative Medical decision making narrative: Pt tolerated removal of the hearing aide FB from right canal without any difficulty. Advised supportive measures and signs/symptoms to go to the ER. Patient is appropriate for outpatient treatment and follow-up. Differential Diagnosis Differential Diagnosis: Coronavirus, strep pharyngitis, allergic rhinitis, upper respiratory tract infection, sinusitis, rhinosinusitis, nasopharyngitis, viral pharyngitis, otitis media, otitis externa, eustachian tube dysfunction, foreign body, cerumen impaction. Vital Signs Vital Signs: Vital Signs Temperature 98.0 F 04/16/25 10:46 Pulse Rate 66 04/16/25 10:46 Respiratory Rate 18 04/16/25 10:46 Blood Pressure 124/75 04/16/25 10:46 Pulse Oximetry 99 04/16/25 10:46 Oxygen Delivery Room Air 04/16/25 10:46 Temperature 98.0 F 04/16/25 10:46 Pulse Rate 66 04/16/25 10:46 Respiratory Rate 18 04/16/25 10:46 Blood Pressure 124/75 04/16/25 10:46 Pulse Oximetry 99 04/16/25 10:46 Oxygen Delivery Room Air 04/16/25 10:46 Discharge Plan Discharge Clinical Impression: Ear foreign body Patient Disposition: Home Condition: Stable Instructions: Antibiotic Form, Ear Foreign Body (ED) Additional Instructions: Follow up with your primary care provider as needed in 1 week Go to the ER for worsening symptoms or concerns Patient Language: Lithuanian Prescriptions: No Action atorvastatin 40 mg tablet 40 mg PO DAILY metformin 500 mg tablet 500 mg PO DAILY gabapentin 600 mg tablet 600 mg PO TID methylphenidate HCl 10 mg tablet 20 mg PO DAILY atenolol 25 mg tablet 50 mg PO DAILY omeprazole 20 mg capsule,delayed release(DR/EC) 20 mg PO DAILY olmesartan 20 mg tablet 40 mg PO DAILY ezetimibe [Zetia] 10 mg tablet 10 mg PO DAILY aspirin 81 mg Capsule 81 mg PO DAILY Follow-up/Referrals: [place],MD Reyes [Primary Care Provider] - Time of Disposition: 11:03
== END 2025-04-16 11:07 | disposition home or self-care (01) ==
PROVIDERS: Emergency Provider Nurse Practitioner Family; PCP Internal Medicine
DX: T16.1XXA Foreign body in right ear, initial encounter (principal); W44.G1XA Audio device entering into or through a natural orifice, initial encounter; E11.9 Type 2 diabetes mellitus without complications; Z79.84 Long term (current) use of oral hypoglycemic drugs; I73.9 Peripheral vascular disease, unspecified; I25.10 Atherosclerotic heart disease of native coronary artery without angina pectoris; I10 Essential (primary) hypertension; E78.5 Hyperlipidemia, unspecified; Z79.82 Long term (current) use of aspirin
CPT/HCPCS: 69200; 99212; G0463